=== PATIENT | female | born 1935 | race Caucasian/White ===

== ENCOUNTER → 2018-06-04 | Outpatient (CLI) | payer MEDICARE, OTHER ==
[~2018-06-04] MED LIST: ACET500ER PO; ASPI325 PO; DOCU100 PO; DULO30 PO; Ferrous Sulfat325 M2 PO; GAVILAX17 GM PO; HYDPAM25; LEVSOD50; ROXICODONE5 MG PO; SIMV10
[2018-06-04 10:00] LABS: Source, Urine Clean Catch
[2018-06-04 11:00] LABS: Bacteria Not Seen /hpf; Granular Casts Rare /lpf (0); Mucus Mod (0-Heavy); Red Blood Cells, Urine 0-2 /hpf (0-2); Squamous Epithelial Cells Few /hpf (Few); Transitional Epithelial Cells Rare /hpf (0-Rare)
[2018-06-04 11:01] LABS: WBC Cast Rare /lpf (0)
== END | disposition home or self-care (01) ==
LOC: LAB EV 09:58 → LAB SHORT 09:58
PROVIDERS: Physician Assistant
DX: R53.83 Other fatigue (principal)
CPT/HCPCS: 81015

== ENCOUNTER → 2019-11-19 | Outpatient (CLI) | payer MEDICARE, OTHER | END | disposition home or self-care (01) | LOC: LAB SHORT 14:45 → PLD 14:45 | DX: L57.0 Actinic keratosis (principal) | CPT/HCPCS: 88305 ==

== ENCOUNTER → 2020-10-20 | Outpatient (CLI) | payer MEDICARE, OTHER ==
[2020-10-21 12:46] LABS: Stool Occult Bld Immuno 1 Negative (NEGATIVE); Stool Occult Bld Immuno 2 Negative (NEGATIVE); Stool Occult Bld Immuno 3 Negative (NEGATIVE)
== END | disposition home or self-care (01) ==
LOC: LAB SHORT 13:24 → LAB 13:24
PROVIDERS: Student in an Organized Health Care Education/Training Program
DX: R19.5 Other fecal abnormalities (principal)
CPT/HCPCS: 82274